=== PATIENT | male | born 1975 | race African-American/Black ===

== ENCOUNTER 2018-03-25 02:14 | Emergency (ER) | payer OTHER ==
[2018-03-25] MEDS: HYDROCODONE/APAP (10/325) TAB PO (02:58)
== END 2018-03-25 04:04 | disposition home or self-care (01) ==
LOC: FTE 02:14
DX: S80.12XA Contusion of left lower leg, initial encounter (principal); F17.210 Nicotine dependence, cigarettes, uncomplicated; X58.XXXA Exposure to other specified factors, initial encounter; Y92.9 Unspecified place or not applicable
CPT/HCPCS: 93971; 99284-25